=== PATIENT | male | born 1980 | race Caucasian/White ===

== ENCOUNTER 2019-12-26 08:00 | Emergency (ER) | payer OTHER, SELFPAY ==
[2019-12-26 08:01] VITALS: BP 157/91; PULSE 78; RESP 16; TEMP 36.3; O2SAT 98; BMI 28.4
--- NOTE | 2019-12-26 08:14 | ED.VISSUMM ---
- ER Visit Summary Date of Service: 12/26/19 Chief Complaint: Upper back pain History of Present Illness: The patient is a [address] Olivier. He reports that 4 days ago he had his right arm on a table for 3 to 4 hours while he had an IV and was having blood work obtained. He reports the next day he woke up and had severe pain in his right upper back. States that it is a sharp pain is 10-10 severity. Is worsened by movement is minimally relieved by naproxen. There is no radiation to his arm. No numbness or weakness. No problems with his bowels or his bladder. Denies any other trauma. Physical Examination: Vitals: Stable. Afebrile. General: Well-nourished and well-developed. Head: Normocephalic atraumatic. Neck: Supple, no lymphadenopathy. No JVD. Nontender. Cardiovascular: Regular rate and rhythm. No murmurs. Respiratory: No respiratory distress. Clear to auscultation bilaterally. Abdominal: Soft, nontender, nondistended, normal bowel sounds. No guarding, rebound, or peritoneal signs. Back: Moderate tensional patient was right trapezius muscle spasm present. He has decreased range of motion of his shoulder secondary to pain in this area. He is neurovascular intact distal this. He has 5-5 lining baster bilaterally. Normal median, ulnar, and radial nerve function both motor and sensory distributions. Normal sensation light touch in the C5-T1 distribution. 2+ radial pulses bilaterally. Extremities: Nontender, no edema. Skin: Normal color, no rash. Neurologic: Alert and oriented ?3. Cranial nerves II through XII are intact. Normal strength and sensation. Psych: Normal affect. Emergency Department Course and Treatment: Patient drove here and was given Toradol IM. Treatment Plan: An [facility] report was obtained which was negative. Patient will be discharged with Valium, Percocet, naproxen. Instructed to follow-up with his primary care physician in 3 to 5 days if not improving. Return to the emergency department for any worsening symptoms. Disposition: To home in improved and stable condition. Impression: 1 1. Right trapezium spasm. This note was generated with [employer] software. It may contain incorrect words, spelling, and punctuation that were not noted in review of the chart prior to signing ED Disposition - Plan for ED Patient: Instructions: ED SPASM Muscle Prescriptions: Naproxen [Naprosyn] 500 mg PO BID #14 tablet Oxycodone HCl/Acetaminophen [Percocet 5/325] 1 tablet PO Q6H PRN PRN 3 Days #12 tablet PRN Reason: Pain Diazepam [Valium] 5 mg PO Q8 PRN #10 tablet PRN Reason: Muscle Spasm Referrals: Doctor,Your [STAFF PHYSICIAN] - 3-5 Days if not improving
[2019-12-26] MEDS: Ketorolac 60 MG/2 ML Vial IM (08:22)
== END 2019-12-26 08:37 | disposition home or self-care (01) ==
LOC: ED 08:30
PROVIDERS: Emergency Provider Emergency Medicine; PCP Family Medicine
DX: M62.830 Muscle spasm of back (principal); M54.2 Cervicalgia; Z79.899 Other long term (current) drug therapy
CPT/HCPCS: 96372; 99282